=== PATIENT | female | born 1940 | race Hispanic/Latino ===

== ENCOUNTER 2018-01-11 10:07 | Inpatient (IN) | payer MEDICARE ==
[~2018-01-11] VITALS: Ht 158.8 cm; Wt 75.5 kg
[2018-01-11 10:27] LABS: BASOPHILS % (AUTO) 0.5 % (0.0-5.0); EOSINOPHILS % (AUTO) 0.4 % (0.0-8.0); HEMATOCRIT 48.9 % (36-48); LYMPHOCYTES % (AUTO) 29.4 % (21.0-51.0); MEAN CORPUSCULAR HEMOGLOBIN 30.7 pg (27.0-33.0); MEAN CORPUSCULAR VOLUME 90.2 fL (79-99); MONOCYTES % (AUTO) 5.1 % (3.0-13.0); NEUTROPHILS % (AUTO) 64.6 % (40.0-77.0); NUCLEATED RED BLOOD CELLS 0.1 % (0.0-0.19); PLATELET COUNT (AUTO) 171 K/uL (130-400); RED BLOOD CELL COUNT(AUTO) 5.42 MIL/uL (4.00-5.50); RED CELL DISTRIBUTION WIDTH 14.4 % (11.0-15.5); WHITE BLOOD COUNT (AUTO) 5.9 K/uL (4.8-10.8)
[2018-01-11 10:42] LABS: CREATININE 1.1 mg/dL (0.5-1.5); POTASSIUM 3.5 mmol/L (3.5-5.1)
[2018-01-11 10:43] LABS: INR 1.75 (0.85-1.15); PARTIAL THROMBOPLASTIN TIME 33.2 SEC (26.3-35.5); PROTHROMBIN TIME 18.2 SEC (9.6-11.6)
[2018-01-11] MEDS ORDERED: DILTIAZEM HCL 5 MG/ML 5 ML VIAL IVP SCH ×3 (10:45→15:30)
[2018-01-11] MEDS ORDERED: DILTIAZEM 125MG+100 ML NS 125 ML IV SCH ×2 (10:45→15:30)
[2018-01-11 10:46] LABS: ALBUMIN 3.7 g/dL (3.5-5.0); BILIRUBIN,TOTAL 1.2 mg/dL (0.2-1.0); TOTAL PROTEIN, SERUM 7.6 g/dL (6.0-8.3)
[2018-01-11] MEDS ORDERED: DIGOXIN 250 MCG/ML 2ML AMP ONE (12:05)
[2018-01-11] MEDS: SODIUM CHLORIDE 0.9% 1000ML 1,000 ML IV SCH ×2 (12:59→22:59)
[2018-01-11] MEDS ORDERED: MAG HYDROX/AL HYDROX/SIMETH ES 30 ML SUSP UDCUP PO PRN (13:00)
[2018-01-11] MEDS ORDERED: ONDANSETRON HCL 4 MG/2 ML VIAL IV PRN (13:00)
[2018-01-11] MEDS ORDERED: ZOLPIDEM TARTRATE 5 MG TAB PO PRN (13:00)
[2018-01-11] MEDS ORDERED: ACETAMINOPHEN 325 MG TAB PO PRN (13:00)
[2018-01-11] MEDS: METOPROLOL TARTRATE 25 MG TAB PO SCH ×2 (13:15→20:06)
[2018-01-11 13:36] LABS: HEMOGLOBIN A1C 6.7 % (4.0-6.0)
[2018-01-11 14:02] LABS: THYROID STIMULATING HORMONE 2.59 uIU/mL (0.36-3.74); TROPONIN I 0.04 ng/mL (0.00-0.06)
[2018-01-11] MEDS ORDERED: WARFARIN SODIUM 2.5 MG TAB PO SCH ×2 (14:30→16:00)
[2018-01-11] MEDS ORDERED: DRON400T2 PO (14:58)
[2018-01-11] MEDS ORDERED: AEC81 PO (14:58)
[2018-01-11] MEDS ORDERED: METO-408 PO (14:58)
[2018-01-11] MEDS ORDERED: METF-446 PO (14:58)
[2018-01-11] MEDS ORDERED: GLIM4TAB3 PO (14:58)
[2018-01-11 15:04] VITALS: BP 137/93
[2018-01-11] MEDS ORDERED: DEXTROSE 50%-WATER 50 ML DISP.SYRIN IV PRN (15:15)
[2018-01-11] MEDS ORDERED: GLUCAGON 1MG KIT 1 MG ML IM PRN (15:15)
[2018-01-11] MEDS ORDERED: WARF5TAB76 PO (15:25)
[2018-01-11] MEDS ORDERED: WARF2.5T47 PO (15:25)
[2018-01-11] MEDS ORDERED: DIGOXIN 125 MCG TABLET PO SCH (16:00)
[2018-01-11] MEDS ORDERED: WARFARIN SODIUM 5 MG TAB PO SCH (16:00)
[2018-01-11] MEDS ORDERED: METOPROLOL TARTRATE 25 MG TAB PO SCH (16:00)
[2018-01-11] MEDS: INSULIN HUMULIN R 100 UNIT/ML 3ML SQ SCH ×2 (16:30→21:00)
[2018-01-11 19:56] VITALS: BP 131/77
[2018-01-11] MEDS: DRONEDARONE HYDROCHLORIDE 400 MG TABLET PO SCH (20:07)
[2018-01-11] MEDS ORDERED: ENOXAPARIN SODIUM 80 MG/0.8 ML SQ SCH (21:00)
[2018-01-11 21:28] LABS: TROPONIN I 0.05 ng/mL (0.00-0.06)
[2018-01-11 23:45] VITALS: BP 138/88
[2018-01-12 03:56] VITALS: BP 138/88
[2018-01-12 06:11] LABS: CREATINE KINASE, TOTAL 40 U/L (21-232); MYOGLOBIN 36 ng/mL (10-92); TROPONIN I < 0.04 ng/mL (0.00-0.06)
[2018-01-12] MEDS: INSULIN HUMULIN R 100 UNIT/ML 3ML SQ SCH (06:20)
[2018-01-12 07:23] VITALS: BP 122/76
[2018-01-12] MEDS ORDERED: PANTOPRAZOLE SODIUM 40 MG TABLET.DR PO SCH (07:30)
[2018-01-12] MEDS: MIDAZOLAM HCL 1 MG/ML 2ML VIAL IVP SCH ×2 (08:42→08:51)
[2018-01-12] MEDS: FENTANYL CITRATE PF 50 MCG/1 ML 2ML VIAL IVP SCH ×4 (08:43→08:56)
[2018-01-12] MEDS ORDERED: METO-391 PO (09:08)
[2018-01-12] MEDS ORDERED: METO-408 PO (09:08)
[2018-01-12] MEDS: METOPROLOL TARTRATE 25 MG TAB PO SCH (09:39)
[2018-01-12] MEDS: DRONEDARONE HYDROCHLORIDE 400 MG TABLET PO SCH (09:39)
[2018-01-12 11:24] VITALS: BP 116/65
[2018-01-12] MEDS ORDERED: WARFARIN SODIUM 5 MG TAB PO SCH (16:00)
[2018-01-12] MEDS ORDERED: WARFARIN SODIUM 2 MG TAB PO SCH (16:00)
[2018-01-12] MEDS ORDERED: WARFARIN SODIUM 2.5 MG TAB PO SCH (16:00)
[2018-01-13] MEDS ORDERED: WARFARIN SODIUM 2.5 MG TAB PO SCH (16:00)
== END 2018-01-12 12:02 | disposition home or self-care (01) | DRG 310 ==
LOC: EDH 10:07 → EDHIP 12:55 → 2AH 14:26
PROVIDERS: ADMIT Internal Medicine; ATTEND Internal Medicine
PROC: 5A2204Z Restoration of Cardiac Rhythm, Single (ICD-10-PCS; principal; 2018-01-12)
DX: I48.1 Persistent atrial fibrillation (principal); I48.2 Chronic atrial fibrillation; E11.9 Type 2 diabetes mellitus without complications; I10 Essential (primary) hypertension; I48.0 Paroxysmal atrial fibrillation; I49.3 Ventricular premature depolarization; Z79.01 Long term (current) use of anticoagulants; Z88.8 Allergy status to other drugs, medicaments and biological substances; Z90.710 Acquired absence of both cervix and uterus; Z90.79 Acquired absence of other genital organ(s); Z90.722 Acquired absence of ovaries, bilateral; Z91.041 Radiographic dye allergy status; Z91.14 Patient's other noncompliance with medication regimen; Z82.49 Family history of ischemic heart disease and other diseases of the circulatory system; Z83.3 Family history of diabetes mellitus; Z82.0 Family history of epilepsy and other diseases of the nervous system
CPT/HCPCS: 36415; 71045; 80053; 82550; 82948; 83036; 83874; 84443; 84484; 85025; 85610; 85730; 93005; 99291; J1160; J1650; J2250; J3010; J3490; J7030

== ENCOUNTER 2019-08-18 07:17 | Day surgery (SDC) | payer MEDICARE ==
[~2019-08-18 07:17] MED LIST: GLIM4TAB36 PO; METF-446 PO; METO-391 PO; OMEG-148 PO; SOTA80TA PO; VITAMIN D3 PO; WARF-57 PO; WARF5TAB PO
[2019-08-18 07:52] LABS: BASOPHILS % (AUTO) 0.7 % (0.0-5.0); EOSINOPHILS % (AUTO) 1.2 % (0.0-8.0); HEMATOCRIT 42.3 % (36-48); LYMPHOCYTES % (AUTO) 34.7 % (21.0-51.0); MEAN CORPUSCULAR HEMOGLOBIN 30.5 pg (27.0-33.0); MEAN CORPUSCULAR HGB CONC 32.6 g/dL (32.0-36.0); MEAN CORPUSCULAR VOLUME 93.4 fL (79-99); NEUTROPHILS % (AUTO) 59.2 % (40.0-77.0); PLATELET COUNT (AUTO) 144 K/uL (130-400); RED BLOOD CELL COUNT(AUTO) 4.53 MIL/uL (4.00-5.50); RED CELL DISTRIBUTION WIDTH 14.5 % (11.0-15.5)
[2019-08-18 08:00] VITALS: BP 152/100
--- NOTE | 2019-08-18 08:00 | NUR ---
PREOP PT ARRIVED IN NO DISTRESS. PT CONNECTED TO [employer] AND ORIENTED TO ROOM. CALL LIGHT WITH IN REACH AND BED IN LOWEST POSITION.
[2019-08-18] MEDS ORDERED: SODIUM CHLORIDE 0.9% 1000ML 1,000 ML IV ONE (08:19)
[2019-08-18 08:35] VITALS: BP 126/72
[2019-08-18 08:39] LABS: INR 1.57 (0.85-1.15); PARTIAL THROMBOPLASTIN TIME 29.5 SEC (26.3-35.5); PROTHROMBIN TIME 16.7 SEC (9.6-11.6)
[2019-08-18 09:02] LABS: POTASSIUM 4.1 mmol/L (3.5-5.1)
[2019-08-18] MEDS ORDERED: GLYCOPYRROLATE 1 MG/5 ML SYRINGE ONE (09:40)
[2019-08-18] MEDS ORDERED: PROPOFOL 10 MG/ML 20ML VIAL IV ONE (09:40)
--- NOTE | 2019-08-18 09:42 | NUR ---
CANCELLED PROCEDURE CANCELLED DUE TO PT/INR RESULTS. DR ABBOTT ALSO NOTIFIED
[2019-08-18 10:00] VITALS: BP 156/88
[2019-08-18 10:45] VITALS: BP 139/67
--- NOTE | 2019-08-18 10:45 | NUR ---
DISCHARGE GIVEN DISCHARGE INSTRUCTIONS AND SON ALSO NOTIFIED. PT GIVEN SCRIPT AND INFORMED TO STOP WARFARIN AND SQUAD BOSS SAMPLES AT MD OFFICE. UNDERSTANDING VOICED
--- NOTE | 2019-08-18 10:50 | NUR ---
TRANSFER PT TAKEN OUT VIA W/C BY JOHN ANDERSON IN NO DISTRESS
== END 2019-08-18 10:45 | disposition home or self-care (01) ==
LOC: DAH 07:17
PROVIDERS: ATTEND Internal Medicine Cardiovascular Disease
DX: I48.19 Other persistent atrial fibrillation (principal); I34.0 Nonrheumatic mitral (valve) insufficiency; I25.10 Atherosclerotic heart disease of native coronary artery without angina pectoris; I10 Essential (primary) hypertension; E78.5 Hyperlipidemia, unspecified; E66.9 Obesity, unspecified; E11.9 Type 2 diabetes mellitus without complications; Z91.041 Radiographic dye allergy status; Z79.01 Long term (current) use of anticoagulants; Z79.84 Long term (current) use of oral hypoglycemic drugs; Z79.02 Long term (current) use of antithrombotics/antiplatelets; Z91.02 Food additives allergy status; Z98.890 Other specified postprocedural states; Z68.29 Body mass index [BMI] 29.0-29.9, adult; Z53.8 Procedure and treatment not carried out for other reasons
CPT/HCPCS: 36415; 80048; 82948; 85025; 85610; 85730; 93005; A4215; A4216; A4221; A4222; A4223 ×3; A4606; A4615; A4663; J2704; J3490; J7030 ×2

== ENCOUNTER 2021-02-20 06:50 | Day surgery (SDC) | payer MEDICARE ==
[2021-02-17 08:45] LABS: BASOPHILS % (AUTO) 0.7 % (0.0-5.0); EOSINOPHILS % (AUTO) 1.4 % (0.0-8.0); HEMATOCRIT 44.4 % (36-48); LYMPHOCYTES % (AUTO) 26.6 % (21.0-51.0); MEAN CORPUSCULAR HEMOGLOBIN 30.7 pg (27.0-33.0); MEAN CORPUSCULAR HGB CONC 32.9 g/dL (32.0-36.0); MEAN CORPUSCULAR VOLUME 93.3 fL (79-99); MONOCYTES % (AUTO) 5.8 % (3.0-13.0); NEUTROPHILS % (AUTO) 65.3 % (40.0-77.0); PLATELET COUNT (AUTO) 169 K/uL (130-400); RED BLOOD CELL COUNT(AUTO) 4.76 MIL/uL (4.00-5.50); RED CELL DISTRIBUTION WIDTH 13.4 % (11.0-15.5); WHITE BLOOD COUNT (AUTO) 4.2 K/uL (4.8-10.8)
[2021-02-17 08:52] LABS: CREATININE 0.7 mg/dL (0.5-1.5); POTASSIUM 4.6 mmol/L (3.5-5.1)
[2021-02-17 08:54] LABS: INR 1.04 (0.85-1.15); PROTHROMBIN TIME 11.3 SEC (9.6-11.6)
[2021-02-17 08:56] LABS: PARTIAL THROMBOPLASTIN TIME 26.5 SEC (26.3-35.5)
[2021-02-17 13:58] VITALS: BP 143/92
[2021-02-20] VITALS (12 sets, daily range): BP systolic 81–152; BP diastolic 35–90
[~2021-02-20] VITALS: Ht 158.8 cm; Wt 68.9 kg
[~2021-02-20 06:50] MED LIST changes: +AMLO-257 PO; +APIX5TAB PO; +CYCL30DR OP; +LATA7.5D OP; -WARF-57 PO; -WARF5TAB PO
[2021-02-20] MEDS ORDERED: 0.9%NACL 1000ML 1,000 ML IV SCH (08:00)
== END 2021-02-20 10:00 | disposition home or self-care (01) ==
LOC: DAH 06:50
PROVIDERS: ATTEND Internal Medicine Cardiovascular Disease
DX: I48.19 Other persistent atrial fibrillation (principal); I10 Essential (primary) hypertension; E11.9 Type 2 diabetes mellitus without complications; I25.10 Atherosclerotic heart disease of native coronary artery without angina pectoris; Z79.01 Long term (current) use of anticoagulants; Z79.899 Other long term (current) drug therapy; Z20.822 Contact with and (suspected) exposure to COVID-19
CPT/HCPCS: 36415; 80048; 82948; 85025; 85610; 85730; 87635; 92960; 93005 ×3; A4215; A4216; A4221; A4222; A4223 ×3; A4606; A4663; C9803

== ENCOUNTER → 2023-03-12 | Outpatient (CLI) | payer MEDICARE | END | disposition home or self-care (01) | LOC: SHCH 10:34 | PROVIDERS: ATTEND Internal Medicine Cardiovascular Disease | DX: I08.1 Rheumatic disorders of both mitral and tricuspid valves (principal); I48.0 Paroxysmal atrial fibrillation; I10 Essential (primary) hypertension; E11.9 Type 2 diabetes mellitus without complications | CPT/HCPCS: 93306 ==

== ENCOUNTER 2023-03-20 07:20 | Day surgery (SDC) | payer MEDICARE ==
[2023-03-19 14:38] LABS: BASOPHILS # (AUTO) 0.03 K/uL (0.00-0.20); BASOPHILS % (AUTO) 0.6 % (0.0-5.0); EOSINOPHILS # (AUTO) 0.06 K/uL (0.00-0.70); EOSINOPHILS % (AUTO) 1.3 % (0.0-8.0); HEMATOCRIT 45.9 % (36-48); IMMATURE GRANULOCYTE ABSOLUTE 0.02 K/uL (0-1); LYMPHOCYTES # (AUTO) 1.2 K/uL (1.0-4.8); LYMPHOCYTES % (AUTO) 26.2 % (21.0-51.0); MEAN CORPUSCULAR HEMOGLOBIN 30.5 pg (27.0-33.0); MEAN CORPUSCULAR HGB CONC 32.7 g/dL (32.0-36.0); MEAN CORPUSCULAR VOLUME 93.3 fL (79-99); MONOCYTES # (AUTO) 0.3 K/uL (0.1-1.0); MONOCYTES % (AUTO) 5.6 % (3.0-13.0); NEUTROPHILS # (AUTO) 3.1 K/uL (1.8-7.7); NEUTROPHILS % (AUTO) 65.9 % (40.0-77.0); PLATELET COUNT (AUTO) 167 K/uL (130-400); RED BLOOD CELL COUNT(AUTO) 4.92 MIL/uL (4.00-5.50); RED CELL DISTRIBUTION WIDTH 14.5 % (11.0-15.5); WHITE BLOOD COUNT (AUTO) 4.7 K/uL (4.8-10.8)
[2023-03-19 15:08] VITALS: BP 158/83; PULSE 113; RESP 20
[2023-03-19 15:20] LABS: CREATININE 0.9 mg/dL (0.5-1.5); POTASSIUM 4.6 mmol/L (3.5-5.1)
[~2023-03-20] VITALS: Ht 149.9 cm; Wt 63.6 kg
[~2023-03-20 07:20] MED LIST changes: -CYCL30DR OP; -LATA7.5D OP; -METO-391 PO; +METO-409 PO; -OMEG-148 PO; +SOTA120T PO; -SOTA80TA PO; -VITAMIN D3 PO
[2023-03-20] MEDS ORDERED: 0.9%NACL 1000ML 1,000 ML IV ONE ×2 (08:13→09:44)
[2023-03-20 08:56] VITALS: BP 199/104; PULSE 97; RESP 14
[2023-03-20] MEDS ORDERED: PROPOFOL 10 MG/ML 20ML VIAL IV ONE (08:58)
== END 2023-03-20 10:40 | disposition home or self-care (01) ==
LOC: DAH 07:20
PROVIDERS: ATTEND Internal Medicine Cardiovascular Disease
DX: I48.19 Other persistent atrial fibrillation (principal); I42.0 Dilated cardiomyopathy; I49.3 Ventricular premature depolarization; I10 Essential (primary) hypertension; E78.5 Hyperlipidemia, unspecified; E11.9 Type 2 diabetes mellitus without complications; Z88.8 Allergy status to other drugs, medicaments and biological substances; Z98.890 Other specified postprocedural states; Z86.16 Personal history of COVID-19; Z79.84 Long term (current) use of oral hypoglycemic drugs; Z79.01 Long term (current) use of anticoagulants
CPT/HCPCS: 80048; 85025; 36415; 92960; 82948; 93005 ×2; J7030 ×2; J2704; A4620; A4215; A4223 ×3; A4213; A7002; A4222; A4221; A4663; A4216; A4606; J3490

== ENCOUNTER 2023-04-29 18:55 | Emergency (ER) | payer MEDICARE ==
[~2023-04-29] VITALS: Ht 157.5 cm; Wt 66.2 kg
[~2023-04-29 18:55] MED LIST changes: -AMLO-257 PO
[2023-04-29 18:56] VITALS: O2SAT 100
[2023-04-29 18:57] VITALS: BP 180/76; PULSE 80; RESP 14
[2023-04-29] MEDS ORDERED: MORPHINE 2 MG SYG IVP ONE (19:30)
[2023-04-29] MEDS ORDERED: ONDANSETRON 4MG INJ IVP ONE (19:30)
== END 2023-04-29 20:54 | disposition home or self-care (01) ==
LOC: EDH 18:55
DX: S42.291A Other displaced fracture of upper end of right humerus, initial encounter for closed fracture (principal); I48.91 Unspecified atrial fibrillation; E11.9 Type 2 diabetes mellitus without complications; I10 Essential (primary) hypertension; Z79.01 Long term (current) use of anticoagulants; Z88.0 Allergy status to penicillin; Z88.8 Allergy status to other drugs, medicaments and biological substances; Z90.710 Acquired absence of both cervix and uterus; Z91.041 Radiographic dye allergy status; W18.39XA Other fall on same level, initial encounter; Y93.89 Activity, other specified; Y92.89 Other specified places as the place of occurrence of the external cause; Y99.8 Other external cause status
CPT/HCPCS: 99284; 96374; 29105; 96375; 73060; 73030; J2270; J2405

== ENCOUNTER → 2023-08-29 | Outpatient (CLI) | payer MEDICARE ==
[~2023-08-29] MED LIST changes: +AMIO200T44 PO; +CEPH500B PO; +LATA2.5D14 OU; -METO-409 PO; +METO50TA9 PO; +SACU1TAB4 PO; -SOTA120T PO
== END | disposition home or self-care (01) ==
LOC: SHCH 14:40
PROVIDERS: ATTEND Internal Medicine Cardiovascular Disease
DX: I08.3 Combined rheumatic disorders of mitral, aortic and tricuspid valves (principal); I42.0 Dilated cardiomyopathy
CPT/HCPCS: 93306